=== PATIENT | male | born 1970 | race American Indian/Alaskan Native ===

== ENCOUNTER 2016-09-25 09:19 | Emergency (ER) | payer MEDICARE ==
[2016-09-25] MEDS ORDERED: XYLOCAINE 1% 20 mL ONE (11:16)
[2016-09-25] MEDS ORDERED: XYLOCAINE 1% 20 mL INFILTRATI ONE (11:26)
[2016-09-25] MEDS ORDERED: ATIVAN IV PRN (11:32)
--- NOTE | 2016-09-25 11:38 | History and Physical Report ---
Medications and Allergies Allergies Allergy/AdvReac Type Severity Reaction Status Date / Time No Known Allergies Allergy Unverified 09/19/13 13:15 Home Medications Medication Instructions Recorded Confirmed Last Taken Type Amiodarone [Cordarone 200 MG TAB] 200 mg PO BID 09/19/13 09/19/13 Unknown History Aspirin [Aspirin TAB] 325 mg PO DAILY 09/19/13 09/19/13 Unknown History Carvedilol [Coreg] 6.25 mg PO DAILY 09/19/13 09/19/13 Unknown History Clopidogrel Bisulfate [Plavix] 75 mg PO DAILY 09/19/13 09/19/13 Unknown History Cyanocobalamin [Vitamin B-12] 1,000 mcg IM QWEEK 09/19/13 09/19/13 Unknown History Ferrous Sulfate [Ferosul Oral Liq] 5 ml PO TID 09/19/13 09/19/13 Unknown History Folic Acid [Folvite] 1 mg PO DAILY 09/19/13 09/19/13 Unknown History Haloperidol Lactate [Haldol] 5 mg IM Q6H PRN 09/19/13 09/19/13 Unknown History Hydralazine HCl [hydrALAZINE] 100 mg PO Q8H 09/19/13 09/19/13 Unknown History Isosorbide Dinitrate [Isordil 20 mg PO TID 09/19/13 09/19/13 Unknown History Titradose] Lactose-Reduced Food [Jevity 1 Paras] 65 ml PO DAILY 09/19/13 09/19/13 Unknown History Methylphenidate [Ritalin] 5 mg PO BID 09/19/13 09/19/13 Unknown History Pantoprazole [Protonix] 40 mg PO DAILY 09/19/13 09/19/13 Unknown History Sertraline HCl [Zoloft] 25 mg PO DAILY 09/19/13 09/19/13 Unknown History amLODIPine [Norvasc] 10 mg PO DAILY 09/19/13 09/19/13 Unknown History cloNIDine [Catapres] 0.1 mg PO Q12H 09/19/13 09/19/13 Unknown History guaiFENesin [Robitussin] 10 ml PO BID 09/19/13 09/19/13 Unknown History levETIRAcetam [Keppra] 500 mg PO BID #60 tablet 09/19/13 Unknown Rx Active Meds: Active Medications Lorazepam (Ativan) 2 mg IV Q4H PRN PRN Reason: Seizures Tetanus/Diphtheria Toxoids (Tenivac) 0.5 ml IM ONCE.ED ONE Stop: 09/25/16 12:01 Exam - Constitutional Vitals: Temp Pulse Resp BP Pulse Ox 98.3 F 54 L 20 140/70 98 09/25/16 10:08 09/25/16 10:08 09/25/16 10:19 09/25/16 10:08 09/25/16 10:08
[2016-09-25] MEDS ORDERED: KEPPRA 1,000 MG/NS 0.75% 100ML 100 ML IV ONE (11:51)
--- NOTE | 2016-09-25 11:54 | Emergency Department Report ---
ED Fall HPI - General Chief Complaint: Wound/Laceration Stated Complaint: FALL/LACERATION TO LIP/LEFT EYE Time Seen by Provider: 09/25/16 11:01 Source: EMS Mode of arrival: Stretcher Limitations: No Limitations - History of Present Illness Initial Comments: 46-year-old male with past medical history of psychiatric disease, A. fib, hypertension, CHF, VA, and seizures presents to the hospital with facial injury status post fall. Patient is a very poor historian and baseline unknown. When questioned about his medical history and what happened patient repeatedly states I don't know. He states he was at [facility] visiting a family member. Only information available is that patient was found on the floor with facial injury. This complains of upper lip pain that is mild to moderate was palpation. Pain is constant alleviating factors. No tongue laceration reported. - Related Data Home Medications Medication Instructions Recorded Confirmed Last Taken Amiodarone [Cordarone 200 MG TAB] 200 mg PO BID 09/19/13 09/19/13 Unknown Aspirin [Aspirin TAB] 325 mg PO DAILY 09/19/13 09/19/13 Unknown Carvedilol [Coreg] 6.25 mg PO DAILY 09/19/13 09/19/13 Unknown Clopidogrel Bisulfate [Plavix] 75 mg PO DAILY 09/19/13 09/19/13 Unknown Cyanocobalamin [Vitamin B-12] 1,000 mcg IM QWEEK 09/19/13 09/19/13 Unknown Ferrous Sulfate [Ferosul Oral Liq] 5 ml PO TID 09/19/13 09/19/13 Unknown Folic Acid [Folvite] 1 mg PO DAILY 09/19/13 09/19/13 Unknown Haloperidol Lactate [Haldol] 5 mg IM Q6H PRN 09/19/13 09/19/13 Unknown Hydralazine HCl [hydrALAZINE] 100 mg PO Q8H 09/19/13 09/19/13 Unknown Isosorbide Dinitrate [Isordil 20 mg PO TID 09/19/13 09/19/13 Unknown Titradose] Lactose-Reduced Food [Jevity 1 Paras] 65 ml PO DAILY 09/19/13 09/19/13 Unknown Methylphenidate [Ritalin] 5 mg PO BID 09/19/13 09/19/13 Unknown Pantoprazole [Protonix] 40 mg PO DAILY 09/19/13 09/19/13 Unknown Sertraline HCl [Zoloft] 25 mg PO DAILY 09/19/13 09/19/13 Unknown amLODIPine [Norvasc] 10 mg PO DAILY 09/19/13 09/19/13 Unknown cloNIDine [Catapres] 0.1 mg PO Q12H 09/19/13 09/19/13 Unknown guaiFENesin [Robitussin] 10 ml PO BID 09/19/13 09/19/13 Unknown Previous Rx's Medication Instructions Recorded Last Taken Type levETIRAcetam [Keppra] 500 mg PO BID #60 tablet 09/19/13 Unknown Rx Allergies Allergy/AdvReac Type Severity Reaction Status Date / Time No Known Allergies Allergy Unverified 09/19/13 13:15 ED Review of Systems ROS: Stated complaint: FALL/LACERATION TO LIP/LEFT EYE Other details as noted in HPI Comment: All other systems reviewed and negative Other: Constitutional: No fevers chills Eyes: No eye pain visual changes ENT:as per hpi Neck: Denies pain Respiratory: Denies cough wheezing shortness of breath Cardiovascular: Denies chest pain, palpitations, syncope GI: Denies abdominal pain, nausea, vomiting, diarrhea : Denies dysuria, urinary frequency, or urgency Musculoskeletal: Denies back pain, joint swelling Skin: Denies rash, lesions, erythema Neurologic: Denies headache, numbness, weakness Psychiatric: Denies suicidal ideation, hallucinations ED Past Medical Hx - Past Medical History Hx Hypertension: Yes Hx Heart Attack/AMI: Yes Hx Congestive Heart Failure: Yes Hx Liver Disease: Yes Hx Psychiatric Treatment: Yes Additional medical history: Afib, Anemia, Pressure ulcers - Surgical History Past Surgical History?: Yes Additional Surgical History: G-tube, hx of tracheostomy - Social History Smoking Status: Unknown if ever smoked Substance Use Type: None - Medications Home Medications: Home Medications Medication Instructions Recorded Confirmed Last Taken Type Amiodarone [Cordarone 200 MG TAB] 200 mg PO BID 09/19/13 09/19/13 Unknown History Aspirin [Aspirin TAB] 325 mg PO DAILY 09/19/13 09/19/13 Unknown History Carvedilol [Coreg] 6.25 mg PO DAILY 09/19/13 09/19/13 Unknown History Clopidogrel Bisulfate [Plavix] 75 mg PO DAILY 09/19/13 09/19/13 Unknown History Cyanocobalamin [Vitamin B-12] 1,000 mcg IM QWEEK 09/19/13 09/19/13 Unknown History Ferrous Sulfate [Ferosul Oral Liq] 5 ml PO TID 09/19/13 09/19/13 Unknown History Folic Acid [Folvite] 1 mg PO DAILY 09/19/13 09/19/13 Unknown History Haloperidol Lactate [Haldol] 5 mg IM Q6H PRN 09/19/13 09/19/13 Unknown History Hydralazine HCl [hydrALAZINE] 100 mg PO Q8H 09/19/13 09/19/13 Unknown History Isosorbide Dinitrate [Isordil 20 mg PO TID 09/19/13 09/19/13 Unknown History Titradose] Lactose-Reduced Food [Jevity 1 Paras] 65 ml PO DAILY 09/19/13 09/19/13 Unknown History Methylphenidate [Ritalin] 5 mg PO BID 09/19/13 09/19/13 Unknown History Pantoprazole [Protonix] 40 mg PO DAILY 09/19/13 09/19/13 Unknown History Sertraline HCl [Zoloft] 25 mg PO DAILY 09/19/13 09/19/13 Unknown History amLODIPine [Norvasc] 10 mg PO DAILY 09/19/13 09/19/13 Unknown History cloNIDine [Catapres] 0.1 mg PO Q12H 09/19/13 09/19/13 Unknown History guaiFENesin [Robitussin] 10 ml PO BID 09/19/13 09/19/13 Unknown History levETIRAcetam [Keppra] 500 mg PO BID #60 tablet 09/19/13 Unknown Rx ED Physical Exam - General Limitations: Altered Mental Status, Physical Limitation - Other Other exam information: General: No limitations, patient is alert in no acute distress Head exam: small lac to mid forehead between eyes, upper left lip laceration, tooth marking inside upper lip, no fractured or missing teeth noted. Eyes exam: Normal appearance ENT: Moist mucous membrane, normal oropharynx Neck exam: Normal inspection, full range of motion, no meningismus nontender Respiratory exam: Clear to auscultation bilateral, no wheezes, rales, crackles Cardiovascular: Normal rate and rhythm, normal heart sounds Abdomen: Soft, nondistended, and nontender, with normal bowel sounds, no rebound, or guarding Extremity: Full range of motion normal inspection no deformity Back: Normal Inspection, full range of motion, no tenderness Neurologic: Alert, oriented x3, cranial nerves intact, no motor or sensory deficit Psychiatric: normal affect, normal mood Skin: Warm, dry, intact ED Course Vital Signs 09/25/16 09/25/16 10:08 10:19 Temperature 98.3 F Pulse Rate 54 L Respiratory 18 20 Rate Blood Pressure 140/70 O2 Sat by Pulse 98 Oximetry - Reevaluation(s) Reevaluation #1: 09/25/16 14:08 Patient's was given Keppra and tetanus in the ED as he was unsure of his tetanus status or if he had taken his seizure medication. Patient stable in the ED - Laceration /Wound Repair Left Face Wound Location: face Wound Length (cm): 3 Wound's Depth, Shape: superficial, linear Wound Explored: clean Irrigated w/ Saline (ccs): 50 Betadine Prep?: Yes Anesthesia: 1% Lidocaine Volume Anesthetic (ccs): 2 Suture Size/Type: 6:0, proline Number of Sutures: 3 Progress: Patient had a laceration to the upper left lateral part of the lip. 1 cm and lids that partially close the vermilion border. Wound anesthetized with lidocaine. 3 6-0 proline sutures placed. Patient had a small laceration to the mid forehead between the eyes. After anesthetized with lidocaine 1 6-0 proline suture placed. ED Medical Decision Making - Lab Data Result diagrams: 09/25/16 11:41 09/25/16 11:41 Lab Results 09/25/16 09/25/16 Range/Units 11:41 11:41 WBC 7.3 (4.5-11.0) K/mm3 RBC 4.48 (3.65-5.03) M/mm3 Hgb 13.1 (11.8-15.2) gm/dl Hct 40.4 (35.5-45.6) % MCV 90 (84-94) fl MCH 29 (28-32) pg MCHC 33 (32-34) % RDW 12.6 L (13.2-15.2) % Plt Count 128 L (140-440) K/mm3 Lymph % (Auto) 15.0 (13.4-35.0) % [place] % (Auto) 9.5 H (0.0-7.3) % Eos % (Auto) 0.7 (0.0-4.3) % Baso % (Auto) 0.4 (0.0-1.8) % Lymph # 1.1 L (1.2-5.4) K/mm3 [place] # 0.7 (0.0-0.8) K/mm3 Eos # 0.0 (0.0-0.4) K/mm3 Baso # 0.0 (0.0-0.1) K/mm3 Seg Neutrophils % 74.4 H (40.0-70.0) % Seg Neutrophils # 5.5 (1.8-7.7) K/mm3 Sodium 143 (137-145) mmol/L Potassium 4.4 (3.6-5.0) mmol/L Chloride 104.8 (98-107) mmol/L Carbon Dioxide 27 (22-30) mmol/L Anion Gap 16 mmol/L BUN 14 (9-20) mg/dL Creatinine 1.1 (0.8-1.5) mg/dL Estimated GFR > 60 ml/min BUN/Creatinine Ratio 12.72 % Glucose 80 (75-100) mg/dL Calcium 9.3 (8.4-10.2) mg/dL Magnesium 1.8 (1.7-2.3) mg/dL Total Creatine Kinase 197 H (55-170) units/L CK-MB (CK-2) 2.1 (0.0-4.0) ng/mL CK-MB (CK-2) Rel Index 1.0 (0-4) Troponin T < 0.010 (0.00-0.029) ng/mL - EKG Data -: EKG Interpreted by Me (nsr rate 62, ant lat t inv) - EKG Data When compared to previous EKG there are: previous EKG unavailable - Radiology Data Radiology results: report reviewed (CT head: No acute findings) - Medical Decision Making EMS for admission report the patient is at his baseline mental status. Patient is a poor historian and this is possibly his baseline. No acute abnormality identified on CT and laboratory results. Patient treated. We will Keppra in case he had a seizure. We will discharge home once we established safe discharge planning. NO chest pain pain or sob reported. Will be referred to cardiology as outpatient based on ekg - Differential Diagnosis syncope, seizure, fall Critical Care Time: No Critical care attestation.: If time is entered above; I have spent that time in minutes in the direct care of this critically ill patient, excluding procedure time. ED Disposition Clinical Impression: Hx of seizure disorder, Psychiatric disorder Fall Qualifiers: Encounter type: initial encounter Qualified Code(s): W19.XXXA - Unspecified fall, initial encounter Head injury Qualifiers: Encounter type: initial encounter Qualified Code(s): S09.90XA - Unspecified injury of head, initial encounter Face lacerations Qualifiers: Encounter type: initial encounter Qualified Code(s): S01.81XA - Laceration without foreign body of other part of head, initial encounter Disposition: DISCHARGED TO HOME OR SELFCARE Is pt being admited?: No Does the pt Need Aspirin: No Condition: Stable Instructions: Suture Care (ED), Epilepsy (ED) Additional Instructions: Your stitches should be removed in 5 days. May follow-up with [facility] primary care doctor or return to the ER for stitches removal. Taking medications as prescribed. Return if symptoms worsen. Referrals: TORY BLANCA MD [Staff Physician] - 3-5 Days (cardiology) KADEN VILLAGOMEZ MD [Primary Care Provider] - 3-5 Days (Primary care doctor ) Time of Disposition: 14:12
[2016-09-25 11:55] LABS: Basophils % (Auto) 0.4 % (0.0-1.8); Eosinophils % (Auto) 0.7 % (0.0-4.3); Hematocrit 40.4 % (35.5-45.6); Hemoglobin 13.1 gm/dl (11.8-15.2); Mean Corpuscular HGB Conc 33 % (32-34); Mean Corpuscular Hemoglobin 29 pg (28-32); Mean Corpuscular Volume 90 fl (84-94); Red Blood Count 4.48 M/mm3 (3.65-5.03); Red Cell Distribution Width 12.6 % (13.2-15.2); White Blood Count 7.3 K/mm3 (4.5-11.0)
[2016-09-25] MEDS ORDERED: TENIVAC IM ONE (12:00)
[2016-09-25] MEDS ORDERED: HYDROGEN PEROXIDE ONE (12:07)
[2016-09-25 12:15] LABS: Creatine Kinase MB 2.1 ng/mL (0.0-4.0)
[2016-09-25 12:16] LABS: Anion Gap 16 mmol/L; BUN/Creatinine Ratio 12.72; Blood Urea Nitrogen 14 mg/dL (9-20); Calcium 9.3 mg/dL (8.4-10.2); Carbon Dioxide 27 mmol/L (22-30); Chloride 104.8 mmol/L (98-107); Creatine Kinase 197 units/L (55-170); Glucose 80 mg/dL (75-100); Magnesium 1.8 mg/dL (1.7-2.3); Potassium 4.4 mmol/L (3.6-5.0); Sodium 143 mmol/L (137-145)
--- NOTE | 2016-09-25 12:19 | Cat Scan Report ---
CT HEAD WITHOUT CONTRAST: HISTORY: head injury. Serial contiguous axial images were obtained through the cranium. Intravenous contrast material was not administered. The ventricles are normal in size and appearance. There is no mass effect or midline shift. No areas of abnormally increased or decreased attenuation are seen. No mass lesion is seen. The mastoid air cells and visualized portions of the sinuses are normal. IMPRESSION: Cranial CT scan within normal limits.
[2016-09-25 12:42] LABS: Platelet Count 128 K/mm3 (140-440)
[2016-09-25] MEDS ORDERED: BOOSTRIX IM ONE (13:51)
[2016-09-25] MEDS ORDERED: HYDROGEN PEROXIDE TP ONE (13:59)
[2016-09-25 20:40] VITALS: BP 110/80
== END 2016-09-25 20:40 | disposition home or self-care (01) ==
LOC: ED 09:19
DX: S01.81XA Laceration without foreign body of other part of head, initial encounter (principal); G40.909 Epilepsy, unspecified, not intractable, without status epilepticus; F29 Unspecified psychosis not due to a substance or known physiological condition; I10 Essential (primary) hypertension; I25.2 Old myocardial infarction; I50.9 Heart failure, unspecified; W18.30XA Fall on same level, unspecified, initial encounter; Y93.9 Activity, unspecified; Y92.9 Unspecified place or not applicable; Y99.9 Unspecified external cause status
CPT/HCPCS: 12002; 36415; 70450; 80048; 82550; 82553; 83735; 84484; 85025; 90471; 90715; 93005; 93010; 96365; 99284; J1953; 90714

== ENCOUNTER 2020-10-06 12:01 | Emergency (ER) | payer MEDICARE ==
--- NOTE | 2020-10-06 13:06 | Emergency Department Report ---
ED General Adult HPI - General Stated complaint: NOT EATING Time Seen by Provider: 10/06/20 12:22 Source: patient - History of Present Illness Initial comments: The patient presents from [facility] [place] halfway via EMS to the emergency department for decreased p.o. intake. Patient states he does not want to eat or drink and they cannot force him to eat or drink. Patient denies any chest pain, shortness breath, headache. Patient has no complaints. Patient states that he does not want to be here. -: unknown Severity scale (0 -10): 0 Improves with: none Worsens with: none Associated Symptoms: denies other symptoms Treatments Prior to Arrival: none - Related Data Home Medications Medication Instructions Recorded Confirmed Last Taken Amiodarone [Cordarone 200 MG TAB] 200 mg PO DAILY 09/19/13 10/18/18 Unknown Aspirin 325 mg PO DAILY 09/19/13 10/18/18 Unknown Clopidogrel Bisulfate [Plavix] 75 mg PO DAILY 09/19/13 10/18/18 Unknown Cyanocobalamin [Vitamin B-12] 1,000 mcg IM QWEEK 09/19/13 10/18/18 Unknown Ferrous Sulfate [Ferosul Oral Liq] 5 ml PO TID 09/19/13 10/18/18 Unknown Hydralazine HCl [hydrALAZINE] 100 mg PO Q8H 09/19/13 10/18/18 Unknown Methylphenidate [Ritalin] 5 mg PO BID 09/19/13 10/18/18 Unknown Pantoprazole [Protonix TAB] 40 mg PO DAILY 09/19/13 10/18/18 Unknown amLODIPine 10 mg PO DAILY 09/19/13 10/18/18 Unknown carvediloL [Coreg] 12.5 mg PO DAILY 09/19/13 10/18/18 Unknown cloNIDine [Catapres] 0.1 mg PO Q12H 09/19/13 10/18/18 Unknown guaiFENesin [Robitussin] 10 ml PO BID 09/19/13 10/18/18 Unknown Sennosides [Senna Lax] 17.2 mg PO BID 10/18/18 10/18/18 Unknown Previous Rx's Medication Instructions Recorded Last Taken Type levETIRAcetam [Keppra TAB] 500 mg PO BID #60 tablet 09/19/13 Unknown Rx Acetaminophen [Acetaminophen TAB] 650 mg PO Q4H PRN tablet 10/24/18 Unknown Rx levoFLOXacin [Levaquin] 750 mg PO QDAY 7 Days tablet 10/24/18 Unknown Rx Amoxicillin/Potassium Clav 1 each PO BID #14 tablet 10/06/20 Unknown Rx [Augmentin 875-125 Tablet] Allergies Allergy/AdvReac Type Severity Reaction Status Date / Time No Known Allergies Allergy Unverified 09/19/13 13:15 ED Review of Systems ROS: Stated complaint: NOT EATING Other details as noted in HPI Comment: All other systems reviewed and negative Constitutional: denies: chills, fever Eyes: denies: eye pain, eye discharge, vision change ENT: denies: ear pain, throat pain Respiratory: denies: cough, shortness of breath, wheezing Cardiovascular: denies: chest pain, palpitations Endocrine: no symptoms reported Gastrointestinal: denies: abdominal pain, nausea, diarrhea Genitourinary: denies: urgency, dysuria Musculoskeletal: denies: back pain, joint swelling, arthralgia Skin: denies: rash, lesions Neurological: denies: headache, weakness, paresthesias Psychiatric: denies: anxiety, depression Hematological/Lymphatic: denies: easy bleeding, easy bruising ED Past Medical Hx - Past Medical History Hx Hypertension: Yes Hx Heart Attack/AMI: Yes Hx Congestive Heart Failure: Yes Hx Diabetes: No Hx Deep Vein Thrombosis: No Hx Pulmonary Embolism: No Hx Liver Disease: Yes Hx Seizures: Yes Hx Psychiatric Treatment: Yes (depressive D/o) Hx Asthma: No Hx COPD: No Hx Tuberculosis: No Hx Dementia: Yes Additional medical history: Afib, Anemia, Pressure ulcers. 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 and [place], repeated falls, dysphagia, muscle weakness - Surgical History Hx Coronary Stent: No Hx Pacemaker: No Hx Internal Defibrillator: No Additional Surgical History: G-tube, hx of tracheostomy - Social History Smoking Status: Former Smoker - Medications Home Medications: Home Medications Medication Instructions Recorded Confirmed Last Taken Type Amiodarone [Cordarone 200 MG TAB] 200 mg PO DAILY 09/19/13 10/18/18 Unknown History Aspirin 325 mg PO DAILY 09/19/13 10/18/18 Unknown History Clopidogrel Bisulfate [Plavix] 75 mg PO DAILY 09/19/13 10/18/18 Unknown History Cyanocobalamin [Vitamin B-12] 1,000 mcg IM QWEEK 09/19/13 10/18/18 Unknown History Ferrous Sulfate [Ferosul Oral Liq] 5 ml PO TID 09/19/13 10/18/18 Unknown History Hydralazine HCl [hydrALAZINE] 100 mg PO Q8H 09/19/13 10/18/18 Unknown History Methylphenidate [Ritalin] 5 mg PO BID 09/19/13 10/18/18 Unknown History Pantoprazole [Protonix TAB] 40 mg PO DAILY 09/19/13 10/18/18 Unknown History amLODIPine 10 mg PO DAILY 09/19/13 10/18/18 Unknown History carvediloL [Coreg] 12.5 mg PO DAILY 09/19/13 10/18/18 Unknown History cloNIDine [Catapres] 0.1 mg PO Q12H 09/19/13 10/18/18 Unknown History guaiFENesin [Robitussin] 10 ml PO BID 09/19/13 10/18/18 Unknown History levETIRAcetam [Keppra TAB] 500 mg PO BID #60 tablet 09/19/13 10/18/18 Unknown Rx Sennosides [Senna Lax] 17.2 mg PO BID 10/18/18 10/18/18 Unknown History Acetaminophen [Acetaminophen TAB] 650 mg PO Q4H PRN tablet 10/24/18 Unknown Rx levoFLOXacin [Levaquin] 750 mg PO QDAY 7 Days tablet 10/24/18 Unknown Rx Amoxicillin/Potassium Clav 1 each PO BID #14 tablet 10/06/20 Unknown Rx [Augmentin 875-125 Tablet] ED Physical Exam - General General appearance: alert, in no apparent distress - Head Head exam: Present: atraumatic, normocephalic - Eye Eye exam: Present: normal appearance - ENT ENT exam: Present: mucous membranes dry, other (Patient is severely dry on exam including his mucous membranes and skin) - Neck Neck exam: Present: normal inspection - Respiratory Respiratory exam: Present: normal lung sounds bilaterally. Absent: respiratory distress - Cardiovascular Cardiovascular Exam: Present: regular rate, normal rhythm. Absent: systolic murmur, diastolic murmur, rubs, gallop - GI/Abdominal GI/Abdominal exam: Present: soft, normal bowel sounds. Absent: distended, tenderness - Rectal Rectal exam: Present: deferred - Extremities Exam Extremities exam: Present: normal inspection - Back Exam Back exam: Present: normal inspection - Neurological Exam Neurological exam: Present: alert, oriented X3, CN II-XII intact. Absent: motor sensory deficit - Psychiatric Psychiatric exam: Present: normal affect, normal mood - Skin Skin exam: Present: warm, dry, intact, normal color. Absent: rash ED Course Vital Signs 10/06/20 10/06/20 10/06/20 12:15 12:30 13:57 Pulse Rate 60 60 60 Respiratory 16 18 Rate Blood Pressure 94/52 Blood Pressure 94/64 82/52 [Left] O2 Sat by Pulse 99 Oximetry ED Medical Decision Making - Lab Data Result diagrams: 10/06/20 13:09 10/06/20 13:09 Lab Results 10/06/20 10/06/20 10/06/20 Range/Units 13:09 13:09 13:09 WBC 11.1 H (4.5-11.0) K/mm3 RBC 3.51 L (3.65-5.03) M/mm3 Hgb 10.5 L (11.8-15.2) gm/dl Hct 32.2 L (35.5-45.6) % MCV 92 (84-94) fl MCH 30 (28-32) pg MCHC 33 (32-34) % RDW 12.7 L (13.2-15.2) % Plt Count 110 L (140-440) K/mm3 Lymph % (Auto) 6.7 L (13.4-35.0) % [place] % (Auto) 10.3 H (0.0-7.3) % Eos % (Auto) 0.0 (0.0-4.3) % Baso % (Auto) 0.1 (0.0-1.8) % Lymph # (Auto) 0.7 L (1.2-5.4) K/mm3 [place] # (Auto) 1.1 H (0.0-0.8) K/mm3 Eos # (Auto) 0.0 (0.0-0.4) K/mm3 Baso # (Auto) 0.0 (0.0-0.1) K/mm3 Seg Neutrophils % 82.9 H (40.0-70.0) % Seg Neutrophils # 9.2 H (1.8-7.7) K/mm3 PT 14.6 (12.2-14.9) Sec. INR 1.15 H (0.87-1.13) APTT 36.3 (24.2-36.6) Sec. Sodium 146 H (137-145) mmol/L Potassium 3.5 L (3.6-5.0) mmol/L Chloride 105.9 (98-107) mmol/L Carbon Dioxide 34 H (22-30) mmol/L Anion Gap 10 mmol/L BUN 14 (9-20) mg/dL Creatinine 1.0 (0.8-1.3) mg/dL Estimated GFR > 60 ml/min BUN/Creatinine Ratio 14 % Glucose 85 (75-100) mg/dL Calcium 8.5 (8.4-10.2) mg/dL Total Bilirubin 0.70 (0.1-1.2) mg/dL AST 32 (5-40) units/L ALT 18 (7-56) units/L Alkaline Phosphatase 49 (35-129) units/L Total Protein 6.4 (6.3-8.2) g/dL Albumin 3.4 L (3.9-5) g/dL Albumin/Globulin Ratio 1.1 % - Medical Decision Making The patient refused to provide a urine or allow chest x-ray. I discussed with the patient multiple times over 2 hours importance of the studies but he stated he did not want to at all. Patient's BP increased after 2 L bolus of normal saline Elevated white count is likely secondary to hemoconcentration especially when compared to the rest of his CBC Critical care attestation.: If time is entered above; I have spent that time in minutes in the direct care of this critically ill patient, excluding procedure time. ED Disposition Clinical Impression: Dehydration determined by examination, Leukocytosis Disposition: DC-01 TO HOME OR SELFCARE Is pt being admited?: No Does the pt Need Aspirin: No Condition: Stable Instructions: Dehydration, Adult Additional Instructions: return if worse Prescriptions: Amoxicillin/Potassium Clav [Augmentin 875-125 Tablet] 1 each PO BID #14 tablet Referrals: PRIMARY CAREMD [Primary Care Provider] - 3-5 Days BONNY AVALOS MD [Staff Physician] - 3-5 Days Time of Disposition: 17:57
[2020-10-06 13:46] LABS: Basophils % (Auto) 0.1 % (0.0-1.8); Hematocrit 32.2 % (35.5-45.6); Hemoglobin 10.5 gm/dl (11.8-15.2); Lymphocytes # (Auto) 0.7 K/mm3 (1.2-5.4); Lymphocytes % (Auto) 6.7 % (13.4-35.0); Mean Corpuscular HGB Conc 33 % (32-34); Mean Corpuscular Volume 92 fl (84-94); Monocytes # (Auto) 1.1 K/mm3 (0.0-0.8); Monocytes % (Auto) 10.3 % (0.0-7.3); Platelet Count 110 K/mm3 (140-440); Red Blood Count 3.51 M/mm3 (3.65-5.03); Red Cell Distribution Width 12.7 % (13.2-15.2)
[2020-10-06 13:53] LABS: INR 1.15 (0.87-1.13)
[2020-10-06 13:54] LABS: Partial Thromboplastin Time 36.3 Sec. (24.2-36.6)
[2020-10-06 13:58] LABS: Alanine Aminotransferase 18 units/L (7-56); Albumin 3.4 g/dL (3.9-5); BUN/Creatinine Ratio 14; Blood Urea Nitrogen 14 mg/dL (9-20); Calcium 8.5 mg/dL (8.4-10.2); Hemolysis Index 2
[2020-10-06] MEDS ORDERED: SODIUM CHLORIDE 0.9% 1000 ML 1,000 ML IV ONE ×2 (14:19→16:32)
--- NOTE | 2020-10-06 17:49 | XRay Report ---
CHEST 1 VIEW 10/06/2020 4:43 PM INDICATION / CLINICAL INFORMATION: hypotensive with leukocytosis. COMPARISON: None available. FINDINGS: SUPPORT DEVICES: None. HEART / MEDIASTINUM: No significant abnormality. LUNGS / PLEURA: No significant pulmonary or pleural abnormality. No pneumothorax. ADDITIONAL FINDINGS: No significant additional findings. IMPRESSION: 1. No acute findings. Signer Name: Michael Monroe MD Signed: 10/06/2020 5:44 PM Workstation Name: [id number]
[2020-10-06 18:32] VITALS: BP 100/74
== END 2020-10-06 23:00 | disposition home or self-care (01) ==
LOC: ED 12:01
DX: E86.0 Dehydration (principal); D72.829 Elevated white blood cell count, unspecified; I48.91 Unspecified atrial fibrillation; D64.9 Anemia, unspecified; F03.90 Unspecified dementia, unspecified severity, without behavioral disturbance, psychotic disturbance, mood disturbance, and anxiety; F32.9 Major depressive disorder, single episode, unspecified; I25.2 Old myocardial infarction; I11.0 Hypertensive heart disease with heart failure; I50.9 Heart failure, unspecified; Z79.899 Other long term (current) drug therapy; Z87.891 Personal history of nicotine dependence; Z98.890 Other specified postprocedural states; Z86.69 Personal history of other diseases of the nervous system and sense organs
CPT/HCPCS: 36415; 71045; 80053; 85025; 85610; 85730; 96360; 96361; 99284; J7030